=== PATIENT | male | born 1960 | race American Indian/Alaskan Native ===

== ENCOUNTER 2019-04-21 13:24 | Emergency (ER) | payer MEDICAID ==
[2019-04-21 13:39] VITALS: BP 84/57
--- NOTE | 2019-04-21 13:39 | Event Note ---
ED Screening Note Date of service: 04/21/19 Time: 13:34 ED Screening Note: This is a 58 y.o. M. that presents to the ER with bruise to left lateral LLE. States he was in a grocery store when someone bumped into his left leg with a cart. Currently taking chemotherapy for cancer unknown site. Current smoker Patient states he drunk liquor and beer today. This initial assessment/diagnostic orders/clinical plan/treatment(s) is/are subject to change based on patients health status, clinical progression and re- assessment by fellow clinical providers in the ED. Further treatment and workup at subsequent clinical providers discretion. Patient/guardian urged not to elope from the ED as their condition may be serious if not clinically assessed and managed. Initial orders include: XR tibula/fibula
[2019-04-21] MEDS ORDERED: BOOSTRIX IM ONE (14:57)
--- NOTE | 2019-04-21 15:29 | Emergency Department Report ---
ED Lower Extremity HPI - General Chief Complaint: Extremity Problem,Nontraumatic Stated Complaint: L LEG INJURY Time Seen by Provider: 04/21/19 13:34 Source: patient Mode of arrival: Ambulatory Limitations: No Limitations - History of Present Illness Initial Comments: This is a 58-year-old male nontoxic, well nourished in appearance, no acute signs of distress presents to the ED with c/o of left leg pain 1 day. Patient stated that he was hit by a shopping chart. Patient denies any other trauma. Patient denies any numbness, tingling, fever, chills, nausea, vomiting, chest pain, shortness of breath, headache, stiff neck. Patient denies any joint swelling or joint redness. Patient denies decreased range of motion. Patient stated has decreased gait due to pain. Patient denies any allergies. MD Complaint: leg injury -: This afternoon Injury: Leg: Left Place: street/outdoors Severity: mild Severity scale (0 -10): 8 Improves With: nothing Worsens With: palpation Associated Symptoms: able to partially bear weight, ambulatory. denies: snap/pop sensation, swelling, numbness, tingling, unable to bear weight - Related Data Allergies Allergy/AdvReac Type Severity Reaction Status Date / Time No Known Allergies Allergy Unverified 04/21/19 13:25 ED Review of Systems ROS: Stated complaint: L LEG INJURY Other details as noted in HPI Constitutional: denies: chills, fever Eyes: denies: eye pain, eye discharge, vision change ENT: denies: ear pain, throat pain Respiratory: denies: cough, shortness of breath, wheezing Cardiovascular: denies: chest pain, palpitations Endocrine: no symptoms reported Gastrointestinal: denies: abdominal pain, nausea, diarrhea Genitourinary: denies: urgency, dysuria Musculoskeletal: denies: back pain, joint swelling, arthralgia Skin: denies: rash, lesions Neurological: denies: headache, weakness, paresthesias Psychiatric: denies: anxiety, depression Hematological/Lymphatic: denies: easy bleeding, easy bruising ED Past Medical Hx - Past Medical History Additional medical history: LIVER CA - Surgical History Past Surgical History?: No - Social History Smoking Status: Current Every Day Smoker Substance Use Type: Alcohol ED Physical Exam - General Limitations: No Limitations General appearance: alert, in no apparent distress - Head Head exam: Present: atraumatic, normocephalic - Neck Neck exam: Present: normal inspection, full ROM. Absent: tenderness, meningismus, lymphadenopathy - Extremities Exam Extremities exam: Present: normal inspection, full ROM, tenderness, normal capillary refill. Absent: joint swelling - Expanded Lower Extremity Exam Left Hip exam: Present: normal inspection, full ROM. Absent: tenderness, swelling Upper Leg exam: Present: normal inspection, full ROM. Absent: tenderness, swelling Knee exam: Present: normal inspection, full ROM. Absent: tenderness, swelling Lower Leg exam: Present: normal inspection, full ROM, tenderness, abrasion. Absent: swelling, laceration, ecchymosis, deformity, crepidus, dislocation, erythema, palpable cord, Jessica's sign Ankle exam: Present: normal inspection, full ROM. Absent: tenderness, swelling Foot/Toe exam: Present: normal inspection, full ROM. Absent: tenderness, swelling Neuro vascular tendon exam: Present: no vascular compromise Gait: Positive: observed and limited by pain 1 - abrasion - Back Exam Back exam: Present: normal inspection, full ROM. Absent: tenderness, CVA tenderness (R), CVA tenderness (L), muscle spasm, paraspinal tenderness, vertebral tenderness, rash noted - Neurological Exam Neurological exam: Present: alert, oriented X3, normal gait - Psychiatric Psychiatric exam: Present: normal affect, normal mood - Skin Skin exam: Present: warm, dry, intact, normal color. Absent: rash ED Course Vital Signs 04/21/19 13:34 Temperature 98.5 F Pulse Rate 120 H Respiratory 20 Rate Blood Pressure 84/57 O2 Sat by Pulse 98 Oximetry - Reevaluation(s) Reevaluation #1: 04/21/19 15:28 Patient is speaking in full sentences with no signs of distress noted. ED Lower Extremity MDM - Medical Decision Making This is a 58-year-old male that presents with left leg contusion. Patient is stable and was examined by me. X-ray has been obtained and dictated by the radiologist with a possible knee fracture. When I came back to speak with the patient about findings with a splint to be placed, patient was not in the room. RN stated to me that patient has left without signing AMA form. I tired to call the patient for a return but there is no phone number listed for the patient. Patient ELOPED without me knowing. Unable to re-evaluate patient and apply a possible splint. Critical care attestation.: If time is entered above; I have spent that time in minutes in the direct care of this critically ill patient, excluding procedure time. ED Disposition Clinical Impression: Abrasion of left leg Qualifiers: Encounter type: initial encounter Qualified Code(s): S80.812A - Abrasion, left lower leg, initial encounter Contusion of left leg Qualifiers: Encounter type: initial encounter Qualified Code(s): S80.12XA - Contusion of left lower leg, initial encounter Disposition: Z-07 ELOPED Is pt being admited?: No Does the pt Need Aspirin: No Condition: Undetermined
--- NOTE | 2019-04-21 15:39 | XRay Report ---
Left leg-3 views INDICATION: bruising and pain to lateral. COMPARISON: None. IMPRESSION: Mild soft tissue swelling about the calf, especially along the posterior and lateral asp ects. No radiopaque foreign body or obvious soft tissue wound. Questionable fibular head fracture pr oximally at the level of the knee. Correlate with point tenderness in this region. Also consider foll ow-up dedicated knee radiographs as needed. 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 Signer Name: Paul Neri MD Signed: 04/21/2019 3:35 PM Workstation Name: [id number]
== END 2019-04-21 17:14 | disposition left against medical advice (07) ==
LOC: ED 13:24
DX: S80.12XA Contusion of left lower leg, initial encounter (principal); F17.200 Nicotine dependence, unspecified, uncomplicated; W22.8XXA Striking against or struck by other objects, initial encounter; Y93.89 Activity, other specified; Y92.89 Other specified places as the place of occurrence of the external cause; Y99.8 Other external cause status